=== PATIENT | female | born 1960 | race Caucasian/White ===

== ENCOUNTER 2021-10-05 04:27 | Observation (INO) | payer OTHER, SELFPAY ==
[2021-10-05] MEDS ORDERED: MORPHINE 4 MG/ML SYR ONE (04:53)
[2021-10-05] MEDS ORDERED: ONDANSETRON 4 MG/2 ML VIAL ONE (04:53)
[2021-10-05 05:53] LABS: Protime INR 0.97
[2021-10-05 05:55] LABS: Absolute Lymphocytes (CBC) 1.7 K/uL (0.7-4.9); Hematocrit 39.9 % (36.0-45.0); Lymphocytes % 29.5 % (15.3-44.8); MPV 7.8 fL (7.6-11.3); RBC Red Blood Cell Count 4.03 M/uL (3.86-4.86)
[2021-10-05 06:06] LABS: ALT/SGPT 21 U/L (12-78); AST/SGOT 9 U/L (15-37); Alkaline Phosphatase 117 U/L (45-117); BUN Blood Urea Nitrogen 13 mg/dL (7-18); Bicarbonate 28 mmol/L (21-32); Bilirubin Direct < 0.1 mg/dL (0-0.2); Bilirubin Total 0.3 mg/dL (0.2-1.0); Glucose Level 96 mg/dL (74-106); Potassium 3.5 mmol/L (3.5-5.1); Protein, Total 6.5 g/dL (6.4-8.2); Sodium Level 142 mmol/L (136-145)
[2021-10-05 06:07] LABS: Albumin 3.2 g/dL (3.4-5.0); Magnesium 2.1 mg/dL (1.8-2.4); NT PRO-BNP 196 pg/mL (<125)
[2021-10-05] MEDS ORDERED: NITROGLYCERIN 0.4 MG/TAB SL ONE (06:12)
--- NOTE | 2021-10-05 06:21 | EDPHYS ---
Physician Documentation [facility] Name: Kae López Age: 61 yrs Sex: Female : 1960 Arrival Date: 10/05/2021 Time: 04:37 Bed 28 Private MD: ED Physician Raz Saldana HPI: 10/05 04:50 This 61 yrs old Female presents to ER via Unassigned with complaints of Chest Pain. rn 04:50 The patient or guardian reports chest pain that is located primarily in the anterior rn chest wall, left. Onset: 1.5 hour(s) ago. The pain does not radiate. Associated signs and symptoms: Pertinent positives: None. Pertinent negatives: abdominal pain, cough, dizziness, headache, lower extremity swelling, palpitations, shortness of breath, syncope, vomiting. The chest pain is described as a pressure. Duration: The patient or guardian reports a single episode, that is still ongoing. Modifying factors: The symptoms are alleviated by nothing. the symptoms are aggravated by nothing. Severity of pain: At its worst the pain was moderate in the emergency department the pain is unchanged. The patient has not experienced similar symptoms in the past. The patient has not recently seen a physician. 04:50 Patient states chest pain that began 1.5 hours ago, substernal and left-sided, rn nonradiating, no diaphoresis, reports mild shortness of breath, no cough, no hemoptysis, no history of DVT or PE, no trauma. Woke her up from sleep.. Historical: - Allergies: 04:56 No Known Allergies; al4 - Immunization history:: Adult Immunizations up to date, Client reports having NOT received the Covid vaccine. Flu vaccine is not up to date. - Social history:: Smoking status: Patient denies any tobacco usage or history of. Patient uses alcohol, on a daily basis. - Family history:: not pertinent. - Hospitalizations: : No recent hospitalization is reported. ROS: 04:50 Constitutional: Negative for fever, chills, and weight loss, Eyes: Negative for injury, rn pain, redness, and discharge, ENT: Negative for injury, pain, and discharge, Neck: Negative for injury, pain, and swelling, Cardiovascular: Positive for chest pain Respiratory: Positive for shortness of breath Abdomen/GI: Negative for abdominal pain, nausea, vomiting, diarrhea, and constipation, Back: Negative for injury and pain, MS/Extremity: Negative for injury and deformity, Skin: Negative for injury, rash, and discoloration, Neuro: Negative for headache, weakness, numbness, tingling, and seizure. Exam: 04:50 Constitutional: This is a well developed, well nourished patient who is awake, alert, rn appears anxious Head/Face: Normocephalic, atraumatic. Eyes: Periorbital areas with no swelling, redness, or edema. Cardiovascular: Regular rate and rhythm. No pulse deficits. Respiratory: Speaking full sentences, unlabored. Abdomen/GI: Soft, non-tender, no masses Skin: Warm, dry MS/ Extremity: Pulses equal, no cyanosis. Neurovascular intact. Full, normal range of motion. Equal circumference. Neuro: Awake and alert, GCS 15 Vital Signs: 04:40 BP 177 / 93; Pulse 56; Resp 20; Pulse Ox 100% on R/A; Pain 5/10; tk1 04:53 BP 167 / 100; Pulse 67; Resp 18 S; Temp 98.2; Pulse Ox 100% ; Weight 108.86 kg (R); al4 Height 6 ft. 2 in. (187.96 cm) (R); Pain 5/10; 05:06 BP 120 / 88 LA Supine (auto/reg); Pulse 57 MON; Resp 16; Temp 98(O); Pulse Ox 100% on tk1 R/A; Pain 0/10; 05:30 BP 161 / 98 LA Supine (auto/reg); Pulse 53 MON; Resp 14 S; Pulse Ox 100% on R/A; tk1 05:30 BP 180 / 100 LA Supine (auto/reg); Pulse 56 MON; Resp 14 S; Pulse Ox 100% on R/A; tk1 14:23 BP 177 / 71; Pulse 57; Resp 18; Pulse Ox 100% on R/A; lao 04:53 Body Mass Index 30.81 (108.86 kg, 187.96 cm) al4 Dilliner Coma Score: 04:40 Eye Response: spontaneous(4). Verbal Response: oriented(5). Motor Response: obeys tk1 commands(6). Total: 15. MDM: 04:38 Patient medically screened. rn 06:13 Differential diagnosis: acute myocardial infarction, acute pericarditis, anxiety, rn coronary artery disease chest wall pain, esophagitis, gastritis, pleurisy, pneumothorax, pulmonary embolus, stable angina, unstable angina. Data reviewed: vital signs, nurses notes. 06:13 The patient was not given aspirin in the Emergency Department. Patient reports taking rn aspirin within the past 24 hours. 06:14 HEART Score: History: Moderately Suspicious (1), ECG: Non specific repolarization rn disturbance / LBTB / PM (1), Age: > 45 and < 65 years (1), Risk Factors: 1 or 2 risk factors (1), Troponin: < or = 1 x Normal Limit (0), Total Score = 4. Counseling: I had a detailed discussion with the patient and/or guardian regarding: the historical points, exam findings, and any diagnostic results supporting the discharge/admit diagnosis, lab results, radiology results, the need for further work-up and treatment in the hospital. Response to treatment: the patient's symptoms have mildly improved after treatment, and as a result, I will admit patient. Admission orders: after a detailed discussion of the patient's condition and case, the admit orders are written by me. ED course: Pt has improved but still having chest pressure. Neg d-dimer. Will admit for cardiac w/u and cardiology consult. . 10/05 04:48 Order name: Basic Metabolic Panel; Complete Time: 06: tk10/05 04:48 Order name: CBC with Diff; Complete Time: : tk10/05 04:48 Order name: LFT's; Complete Time: 06:12 10/05 04:48 Order name: Magnesium; Complete Time: 06:10/05 04:48 Order name: NT PRO-BNP; Complete Time: 06:10/05 04:48 Order name: PT-INR; Complete Time: : tk10/05 04:48 Order name: Troponin HS; Complete Time: 06: tk10/05 04:50 Order name: COVID-19 SARS RT PCR (Document "Date of Onset" if Symptomatic); Complete rn Time: 10/05 05:09 Order name: D-Dimer; Complete Time: 05: EDKY 10/05 08:48 Order name: Basic Metabolic Panel EDKY 10/05 08:48 Order name: Basic Metabolic Panel EDKY 10/05 08:48 Order name: CBC with Automated Diff EDMS 10/05 08:48 Order name: CBC with Automated Diff EDMS 10/05 04:48 Order name: XRAY Chest (1 view) tk1 10/05 04:48 Order name: EKG; Complete Time: 04:49 tk1 10/05 04:48 Order name: Cardiac monitoring; Complete Time: 04:48 tk1 10/05 04:48 Order name: EKG - Nurse/Tech; Complete Time: 04:48 tk1 10/05 04:48 Order name: IV Saline Lock; Complete Time: 04:48 tk1 10/05 04:48 Order name: Labs collected and sent; Complete Time: 04:49 tk1 10/05 08:48 Order name: Heart Healthy EDKY 10/05 08:48 Order name: Echo with Doppler EDMS 10/05 08:48 Order name: Lipid Profile EDMS 10/05 08:48 Order name: Lipid Profile EDKY 10/05 08:50 Order name: CONS Physician Consult EDKY 10/05 14:33 Order name: NM EDKY 10/05 04:48 Order name: O2 Per Protocol; Complete Time: 08:14 tk1 10/05 04:48 Order name: O2 Sat Monitoring; Complete Time: 08:14 tk1 Administered Medications: 04:50 Drug: morphine 4 mg Route: IVP; Site: right hand; tk1 04:50 Drug: Zofran (Ondansetron) 4 mg Route: IVP; Site: right hand; tk1 06:05 Drug: Nitroglycerin 0.4 mg Route: Sublingual; tk1 Disposition Summary: 10/05/21 06:20 Hospitalization Ordered Hospitalization Status: Inpatient Admission rn Provider: Logan Chowdhury rn Condition: Stable rn Problem: new rn Symptoms: have improved rn Bed/Room Type: Standard rn Location: [facility] ER HOLD(10/05/21 06:23) eb1 Room Assignment: ERHOLD-(10/05/21 06:23) eb1 Diagnosis - Chest pain, unspecified rn Forms: - Medication Reconciliation Form rn - SBAR form rn Signatures: Dispatcher [employer] EDMS Raz Saldana MD MD rn Basinger, Emily RN RN eb1 Dickson Hutton Tammie tk1 Corrections: (The following items were deleted from the chart) 05:08 04:49 D-DIMER+COAG.LAB.BRZ ordered. EDMS EDMS : 06:20 Telemetry/MedSurg (observation) ashtyn eb1 : 06:20 ashtyn eb1 06:27 06:16 Angio Aorta For Dissection+CT.RAD.BRZ ordered. EDMS EDMS
--- NOTE | 2021-10-05 06:21 | ER ---
Nurse's Notes [facility] Name: Kae López Age: 61 yrs Sex: Female : 1960 Arrival Date: 10/05/2021 Time: 04:37 Bed 28 Private MD: Diagnosis: Chest pain, unspecified Presentation: 10/05 04:53 Chief complaint: Patient states: "I woke up at 0300 with chest pain 910." Patient al4 states she has "slight" SOB, but denies N/V/D and denies having symptoms like this before. Coronavirus screen: Vaccine status: Patient reports being unvaccinated. Ebola Screen: No symptoms or risks identified at this time. Initial Sepsis Screen: Does the patient meet any 2 criteria? No. Patient's initial sepsis screen is negative. Does the patient have a suspected source of infection? No. Patient's initial sepsis screen is negative. Risk Assessment: Do you want to hurt yourself or someone else? Patient reports no desire to harm self or others. Onset of symptoms was October 05, 2021. 04:53 Method Of Arrival: Ambulatory al4 04:53 Acuity: TEENA 3 al4 Triage Assessment: 04:40 General: ERP at bedside assessing patient . al4 04:56 General: Appears in no apparent distress. uncomfortable, Behavior is calm, cooperative, al4 appropriate for age. Pain: Complains of pain in chest. Neuro: Level of Consciousness is awake, alert, obeys commands, Oriented to person, place, time, situation. Cardiovascular: Capillary refill < 3 seconds Patient's skin is warm and dry. Chest pain. Respiratory: Airway is patent Respiratory effort is even, unlabored, Respiratory pattern is regular, symmetrical. Musculoskeletal: Range of motion: intact in all extremities. Historical: - Allergies: 04:56 No Known Allergies; al4 - Immunization history:: Adult Immunizations up to date, Client reports having NOT received the Covid vaccine. Flu vaccine is not up to date. - Social history:: Smoking status: Patient denies any tobacco usage or history of. Patient uses alcohol, on a daily basis. - Family history:: not pertinent. - Hospitalizations: : No recent hospitalization is reported. Screenin:40 Abuse screen: Denies threats or abuse. Denies injuries from another. Nutritional tk1 screening: No deficits noted. Tuberculosis screening: No symptoms or risk factors identified. Fall Risk None identified. Assessment: 04:00 Respiratory: No deficits noted. Airway is patent Breath sounds are clear bilaterally. tk1 04:40 General: Appears uncomfortable, obese, well groomed, well developed, well nourished, tk1 Behavior is calm, cooperative, appropriate for age. Pain: Complains of pain in anterior aspect of left upper chest Pain does not radiate. Pain currently is 5 out of 10 on a pain scale. Quality of pain is described as sharp, Pain began 1 hour ago. Is continuous, Alleviated by nothing. Neuro: No deficits noted. Level of Consciousness is awake, alert, obeys commands, Oriented to person, place, time, situation, Appropriate for age Line Walker are equal bilaterally Moves all extremities. Full function Gait is steady, Speech is normal, Facial symmetry appears normal, Pupils are PERRLA, Intact Reports Denies weakness. Cardiovascular: Reports chest pain, Denies Heart tones S1 S2 present Capillary refill < 3 seconds is brisk Clubbing of nail beds is absent JVD is absent Pulses are all present. Edema is absent. Rhythm is sinus bradycardia Chest pain began 1 hour prior to arrival episodes are continuous. GI: No deficits noted. : No deficits noted. EENT: No deficits noted. Derm: No deficits noted. Musculoskeletal: No deficits noted. 05:00 Reassessment: Patient appears in no apparent distress at this time. Patient verbalized tk1 relief of chest pain. States, she feels pressure between breast. 06:00 Reassessment: Patient continues with chest pressure. New order received. tk1 06:00 Reassessment: Patient verbalized relief of chest pressure after sublingual NTG. tk1 Medication effective. Vital Signs: 04:40 BP 177 / 93; Pulse 56; Resp 20; Pulse Ox 100% on R/A; Pain 5/10; tk1 04:53 BP 167 / 100; Pulse 67; Resp 18 S; Temp 98.2; Pulse Ox 100% ; Weight 108.86 kg (R); al4 Height 6 ft. 2 in. (187.96 cm) (R); Pain 5/10; 05:06 BP 120 / 88 LA Supine (auto/reg); Pulse 57 MON; Resp 16; Temp 98(O); Pulse Ox 100% on tk1 R/A; Pain 0/10; 05:30 BP 161 / 98 LA Supine (auto/reg); Pulse 53 MON; Resp 14 S; Pulse Ox 100% on R/A; tk1 05:30 BP 180 / 100 LA Supine (auto/reg); Pulse 56 MON; Resp 14 S; Pulse Ox 100% on R/A; tk1 14:23 BP 177 / 71; Pulse 57; Resp 18; Pulse Ox 100% on R/A; lao 04:53 Body Mass Index 30.81 (108.86 kg, 187.96 cm) al4 Vitals: 04:40 Cardiac Rhythm Assessment Regular Sinus pako. Cardiac Rhythm Assessment Regular Sinus tk1 pako. 05:06 Cardiac Rhythm Assessment Regular Sinus pako. tk1 Hieu Coma Score: 04:40 Eye Response: spontaneous(4). Verbal Response: oriented(5). Motor Response: obeys tk1 commands(6). Total: 15. ED Course: 04:37 Patient arrived in ED. es 04:38 Raz Saldana MD is Attending Physician. rn 04:40 Patient has correct armband on for positive identification. Bed in low position. Call tk1 light in reach. Side rails up X2. Adult w/ patient. environmental monitoring specialist on. Pulse ox on. NIBP on. 04:40 No provider procedures requiring assistance completed. Inserted saline lock: 20 gauge tk1 in right hand, using aseptic technique. 04:48 Mariely Rivero is Primary Nurse. tk1 04:56 Triage completed. al4 04:58 Arm band placed on. al4 05:04 COVID-19 SARS RT PCR (Document "Date of Onset" if Symptomatic) Sent. tk1 05:05 Basic Metabolic Panel Sent. tk1 05:05 CBC with Diff Sent. tk1 05:05 LFT's Sent. tk1 05:05 Magnesium Sent. tk1 05:05 NT PRO-BNP Sent. tk1 05:05 PT-INR Sent. tk1 05:05 Troponin HS Sent. tk1 05:06 XRAY Chest (1 view) In Process Unspecified. EDMS 06:19 Logan Chowdhury MD is Hospitalizing Provider. rn 14:23 Patient maintains SpO2 saturation greater than 95% on room air. lao 19:12 Patient admitted, IV remains in place. ss Administered Medications: 04:50 Drug: morphine 4 mg Route: IVP; Site: right hand; tk1 04:50 Drug: Zofran (Ondansetron) 4 mg Route: IVP; Site: right hand; tk1 06:05 Drug: Nitroglycerin 0.4 mg Route: Sublingual; tk1 Outcome: 06:20 Decision to Hospitalize by Provider. rn 19:12 Admitted to ER Hold. Please see [facility] for further documentation. ss 19:12 Condition: stable 19:12 Instructed on the need for admit. 21:05 Patient left the ED. tw5 Signatures: Dispatcher [employer] EDMS Eloisa Fischer Roman, MD MD rn Smirch, Shelby, RN RN ss Wood, Tiffany tw5 Dickson Hutton-StagerCarrie RN RN ha Kirby, Tammie tk1 Corrections: (The following items were deleted from the chart) 05:08 05:04 D-DIMER+COAG.LAB.BRZ drawn and sent. tk1 EDMS :17 05:06 General: Appears uncomfortable, obese, well groomed, well developed, well tk1 nourished, Behavior is calm, cooperative, appropriate for age, tk1 :17 05:06 Pain: Complains of pain in anterior aspect of left upper chest Pain does not tk1 radiate. Pain currently is 5 out of 10 on a pain scale. Quality of pain is described as sharp, Pain began 1 hour ago. Is continuous, Alleviated by nothing. tk1 05:06 Neuro: No deficits noted. Level of Consciousness is awake, alert, obeys commands, tk1 Oriented to person, place, time, situation, Appropriate for age Line Walker are equal bilaterally Moves all extremities. Full function Gait is steady, Speech is normal, Facial symmetry appears normal, Pupils are PERRLA, Intact Reports Denies weakness tk1 :17 05:06 Cardiovascular: Reports chest pain, Denies Heart tones S1 S2 present Capillary tk1 refill < 3 seconds is brisk Clubbing of nail beds is absent JVD is absent Pulses are all present. Edema is absent. Rhythm is sinus bradycardia Chest pain began 1 hour prior to arrival episodes are continuous tk1 05:06 Respiratory: No deficits noted. Airway is patent Breath sounds are clear tk1 bilaterally. tk1 05:06 GI: No deficits noted. tk1 tk1 05:17 05:06 : No deficits noted. tk1 tk1 05:17 05:06 EENT: No deficits noted. tk1 tk1 05:17 05:06 Derm: No deficits noted. tk1 tk1 05:17 05:06 Musculoskeletal: No deficits noted. tk1 tk1
--- NOTE | 2021-10-05 08:10 | RAD REPORT ---
EXAM DESCRIPTION: RAD - Chest Single View - 10/05/2021 5:06 am CLINICAL HISTORY: CHEST PAIN COMPARISON: None TECHNIQUE: AP portable chest image was obtained 10/05/2021 5:06 am . FINDINGS: Under penetrated technique and prominent overlying breast soft tissue limits mid and lower lung field evaluation. Focal mass or consolidation is not identifiable. No significant lung parenchy mal process suspected. Heart and vasculature are normal. No measurable pleural effusion and no pneumothorax. No acute bony abnormality seen. No acute aortic findings suspected. IMPRESSION: No acute cardiopulmonary process.
[2021-10-05] MEDS ORDERED: ACETAMINOPHEN 500 MG TAB PO PRN (08:45)
[2021-10-05] MEDS ORDERED: MORPHINE 4 MG/ML SYR IV PRN (08:45)
[2021-10-05] MEDS ORDERED: ASPIRIN EC 81 MG TAB PO SCH (09:00)
[2021-10-05] MEDS ORDERED: METOPROLOL TAR 25 MG TAB PO SCH (09:00)
[2021-10-05] MEDS ORDERED: ENOXAPARIN 40 MG/0.4 ML SQ SCH (09:00)
[2021-10-05] MEDS ORDERED: REGADENOSON 0.4 MG/5 ML SYR IV ONE (09:27)
[2021-10-05] MEDS ORDERED: HYDROCORTISONE SUC 100 MG INJ IV ONE (09:34)
[2021-10-05] MEDS ORDERED: ENOXAPARIN 40 MG/0.4 ML SQ ONE (12:04)
[2021-10-05] MEDS ORDERED: ASPIRIN 81 MG CHEWABLE TABLET ONE (12:04)
[2021-10-05] MEDS ORDERED: HYDROCORTISONE SUC 100 MG INJ ONE (12:04)
--- NOTE | 2021-10-05 14:19 | ECHO ---
HEIGHT: ft in WEIGHT: lb oz DATE OF STUDY: 10/05/[address]: Logan Chowdhury MD 2-DIMENSIONAL: YES M.MODE: YES DOPPLER: YES COLOR FLOW: YES TDS: PORTABLE: DEFINITY: BUBBLE STUDY: DIAGNOSIS: CHEST PAIN CARDIAC HISTORY: CATHERIZATION: SURGERY: PROSTHETIC VALVE: PACEMAKER: MEASUREMENTS (cm) DIASTOLIC (NORMALS) SYSTOLIC (NORMALS) IVSd 1.3 (0.6-1.2) LA Diam 3.5 (1.9-4.0) LVEF 60% LVIDd 4.5 (3.5-5.7) LVIDs 3.0 (2.0-3.5) %FS 32% LVPWd 1.4 (0.6-1.2) Ao Diam 2.8 (2.0-3.7) 2 DIMENSIONAL ASSESSMENT: RIGHT ATRIUM: NORMAL LEFT ATRIUM: NORMAL RIGHT VENTRICLE: NORMAL LEFT VENTRICLE: NORMAL TRICUSPID VALVE: MILD TRICUSPID REGURGITATION MITRAL VALVE: MILD MITRAL REGURGITATION PULMONIC VALVE: NORMAL AORTIC VALVE: NORMAL PERICARDIAL EFFUSION: NONE AORTIC ROOT: NORMAL LEFT VENTRICULAR WALL MOTION: NORMAL DOPPLER/COLOR FLOW: SEE BELOW COMMENTS: NORMAL LEFT VENTRICULAR EJECTION FRACTION 55-60%. NORMAL WALL MOTION. MILD TRICUSPID REGURGITATION. MILD MITRAL REGURGITATION. TECHNOLOGIST: NITIN CONTRERAS
--- NOTE | 2021-10-05 14:32 | RAD REPORT ---
EXAM DESCRIPTION: NM - Rest Stress Cardiac Imaging - 10/05/2021 2:18 pm CLINICAL HISTORY: Chest pain. COMPARISON: None. TECHNIQUE: The patient was administered 10. 8mCi of Tc 99m Sestamibi prior to resting SPECT imaging of the heart. The patient was then administered 30.9 mCi of Tc 99m Sestamibi following exercise or ph armacologic stress. Multiplanar SPECT images were reviewed. FINDINGS: There is uniformity of radiotracer uptake involving the entire left ventricular myocardiu m on rest and stress images. The left ventricular ejection fraction equals 67% IMPRESSION: Negative for a myocardial perfusion defect
--- NOTE | 2021-10-05 14:55 | TREADPHA ---
DX: CHEST PAIN Date of Study: 10/02/2021 Ht: ' " Wt: lb oz Consulting Physician: SRUTHI MEDICATIONS: ASPIRIN, LOVENOX, LOPRESSOR HISTORY: 61 YEAR OLD FEMALE WITH COMPLAINTS OF CHEST PAIN AND SHORTNESS OF BREATH. HISTORY OF CONGESTIVE HEART FAILURE AND FORMER SMOKER. PHYSICIAL EXAMINATION: RESTING B.P.: 171/90 RESTING H.R.: 58 RESTING EKG: WITHIN NORMAL LIMITS PROTOCOL: LEXISCAN EXERCISE TIME: 3:30 B.P. AT PEAK STRESS: 182/91 IMPRESSION: LEXISCAN INJECTED. CARDIOLITE INJECTED PER PROTOCOL. SEE NUCLEAR MEDICINE REPORT. NO PREMATURE VENTRICULAR COMPLEXES. NO SUPRAVENTRICULAR OR VENTRICULAR TACHYCARDIA NOTED. PATIENT COMPLAINS OF CHEST PAIN OF 5/10 AND DECREASED TO 1/10 AT 2 MIN. NO EKG CHANGES WITH LEXISCAN.
--- NOTE | 2021-10-05 18:35 | CON ---
Date of Consultation: 10/05/2021 Reason For Consultation: Chest pain. History Of Present Illness: This is a 61-year-old female, who has a strong family history of coronar y artery disease. Sister at her age had significant LAD disease, required intervention. Presented w ith chest pain, it is retrosternal, radiates to the right side and related to activities along with s ome shortness of breath. Denies having any other complaints at the present time. Past Medical History: Hypertension. No cardiac history. Medications: Refer reconciliation sheet for detailed list. Allergies: NO KNOWN DRUG ALLERGIES. Family History: Premature coronary artery disease as outlined above in her sister. Social History: Does not smoke or drink. Does not use any drugs. Review of Systems: All systems reviewed and they were negative except as mentioned in the HPI. Physical Examination: Vital Signs: Reviewed. Head and Neck: Pupils are equal and reactive to light. Intact eye movements. No JVD. No adenopath y. Neck is supple. Thyroid is not enlarged. Lungs: Clear to auscultation bilaterally. No rhonchi, rales, or crackles. No accessory muscle use. Heart: Regular rate and rhythm. No extra sounds. Abdomen: Soft and nontender. Bowel sounds positive. No organomegaly. No masses or hernia. No rig idity or rebound. Extremities: No edema, clubbing, or cyanosis. Intact pulses. Skin: No rash. Neurologic: Alert, awake, and oriented x3. No acute focal deficits appreciated. Investigations: White blood cell count 5.7, hemoglobin 13.2, sodium 142, BUN 13, and creatinine 0.58 . Troponin is 7.7 and NT-proBNP is 196. EKG without acute specific abnormalities. Assessment And Recommendations: Chest pain with strong family history. Heart function is normal on echo and she has some typical features to it. Admit, start on aspirin and do 2 more sets of cardiac enzymes. Nuclear stress test was just done, awaiting the results on that. If this is abnormal, we w ill plan for coronary angiogram. If stress test is negative, then no further cardiac workup will be recommended. I will follow the patient with you. Thank you for the consult. /CAITLYN Voice ID: [id number] Report ID: [id number]
[2021-10-05 21:18] VITALS: O2SAT 100
[2021-10-05 21:19] VITALS: TEMP 98
[2021-10-05 21:23] VITALS: BP 177/71
--- NOTE | 2021-10-09 03:37 | P.SSS ---
Patient History Date of Service: 10/05/21 Reason for admission: Chest pain rule out acute coronary syndrome History of Present Illness: Patient is a 61-year-old female came to the hospital with chest discomfort. Patient has a family history of Coronary artery disease. Patient came to the hospital because her chest was tight. She was short of breath. She was brought into the emergency room for further evaluation. Initial troponins were negative. Patient be admitted for further treatment. Allergies No Known Allergies Allergy (Unverified 10/05/21 08:54) Home Medications: Aspirin [Aspirin EC 81 MG] 81 mg PO DAILY #30 tablet.dr 10/05/21 Metoprolol Tartrate [Lopressor*] 25 mg PO BID #60 tab 10/05/21 Pantoprazole [Protonix Tab] 40 mg PO DAILY #30 tab 10/05/21 predniSONE [Prednisone*] 20 mg PO DAILY #5 tab 10/05/21 - Past Medical/Surgical History -: Hypertension Past Surgical History: Patient denies surgical history - Family History Family History: Reviewed- Non-Contributory - Social History Smoking Status: Never smoker Alcohol use: No CD- Drugs: No Review of Systems 10-point ROS is otherwise unremarkable Physical Examination - Vital Signs Temperature: 98 F Blood Pressure: 177/71 Pulse: 57 Respirations: 18 Pulse Ox (%): 99 - Physical Exam General: Alert, In no apparent distress, Oriented x3 HEENT: Atraumatic, PERRLA, Mucous membr. moist/pink, EOMI, Sclerae nonicteric Neck: Supple, 2+ carotid pulse no bruit, No LAD, Without JVD or thyroid abnormality Respiratory: Clear to auscultation bilaterally, Normal air movement Cardiovascular: Regular rate/rhythm, Normal S1 S2, No murmurs Gastrointestinal: Normal bowel sounds, Soft and benign, Non-distended, No tenderness Musculoskeletal: No clubbing, No swelling, No contractures, No tenderness Integumentary: No rashes Neurological: Normal gait, Normal speech, Normal strength at 5/5 x4 extr, Normal tone, Sensation intact, Cranial nerves 3-12 intact, Normal affect Lymphatics: No axilla or inguinal lymphadenopathy - Diagnosis (Problem(s)) (1) Chest pain, rule out acute myocardial infarction Status: Acute Treatment Summary: Patient is clinically doing well. Patient stress test was negative. Echo was unremarkable. At this time patient is stable for discharge and will be discharged on medication for costochondritis including anti-inflammatory. Patient will follow with PCP in 1-2 weeks. - Disposition Discharge Date: 10/05/21 Disposition: ROUTINE DISCHARGE Condition: GOOD Diet: AHA Activity: Fall precautions Critical Care: No Time Spent Managing Pts Care (In Minutes): 45
== END 2021-10-05 19:56 | disposition home or self-care (01) ==
LOC: ER 04:27 → ERHOLD 08:45
PROVIDERS: ADMIT Hospitalist; ATTEND Hospitalist
DX: R07.9 Chest pain, unspecified (principal); I10 Essential (primary) hypertension; Z79.82 Long term (current) use of aspirin; Z20.822 Contact with and (suspected) exposure to COVID-19; Z82.49 Family history of ischemic heart disease and other diseases of the circulatory system
CPT/HCPCS: 93005; 93017; 93306; 85025; 80048; 36415; 83735; 85610; 85379; 80076; 84484; 83880; 71045; 78452; 96375; 96374; 99285; U0003; J1650; J2785; J1720; J2405; A9500; G0378 ×2

== ENCOUNTER 2022-10-09 05:59 | Day surgery (SDC) | payer OTHER ==
--- NOTE | 2022-10-04 11:17 | RAD REPORT ---
EXAM DESCRIPTION: RAD - Chest Pa And Lat (2 Views) - 10/04/2022 11:11 am CLINICAL HISTORY: Pre op pending foot surgery Chest pain. COMPARISON: Chest Single View dated 10/05/2021 FINDINGS: The lungs are clear. The heart is normal in size. No displaced fractures. IMPRESSION: No acute or concerning finding suspected.
[2022-10-04 11:21] LABS: Absolute Lymphocytes (CBC) 1.6 K/uL (0.7-4.9); Hematocrit 41.2 % (36.0-45.0); Lymphocytes % 23.8 % (15.3-44.8); MCV 96.5 fL (80-100); MPV 7.8 fL (7.6-11.3); RBC Red Blood Cell Count 4.27 M/uL (3.86-4.86)
[2022-10-04 11:22] LABS: Specific Gravity 1.017 (1.005-1.030); Urine Bilirubin NEGATIVE (Negative); Urine Blood Negative (Negative); Urine Clarity Clear (Clear); Urine Color Light-Yellow (Yellow); Urine Glucose NEGATIVE (Negative); Urine Protein NEGATIVE (Negative); Urine Urobilinogen Normal (Normal)
--- NOTE | 2022-10-04 18:10 | EKG ---
Test Date: 2022-10-04 Test Time: 10:55:02 Deputy Sheriff Generalist/Bailiff: HA MEASUREMENT RESULTS: Intervals: Rate: 58 PA: 160 QRSD: 88 QT: 404 QTc: 396 Stuart: P: 61 PA: 160 QRS: 57 T: 98 INTERPRETIVE STATEMENTS: Sinus bradycardia Nonspecific T wave abnormality Abnormal ECG Compared to ECG 10/05/2021 04:46:44 Myocardial infarct finding no longer present Possible ischemia no longer present T-wave abnormality still present Electronically Signed On 10-04-22 18:10:15 OXYACETYLENE TORCH OPERATOR by Dirk Chahal
--- NOTE | 2022-10-08 14:26 | PREOPHP ---
Date of Admission: 10/09/2022 History Of Present Illness: This patient presented to my office with a chief complaint of a bump on her left big toe and a growth present in the bottom of her left foot in the arch area. The growth lao s been present for over a year. The bump has been present on the toe for a number of weeks. The pat ient's pain is moderate in severity, worse with activity, improved with rest. Past Medical History: Include anemia, arthritis, hypertension, obesity. Current Medications: Include aspirin, trazodone 100 mg, tizanidine 4 mg, hydrocodone 10/325, spirono lactone 25 mg, pantoprazole 40 mg, indomethacin ER 75 mg, lovastatin 10 mg, and amlodipine 5 mg. Allergies: NKDA. Past Surgical History: Include procedure on the knee, hysterectomy, bunion surgery, neuroma surgery, tummy tuck, gastric sleeve, and breast enhancement. Social History: Patient is a former tobacco user and social beer drinker. Denies recreational drug use. Family History: Include anemia, cholesterol, gout, heart disease, hypertension, mitral valve prolaps e, stroke, thyroid in her father; arthritis, cancer, high cholesterol, heart disease, hypertension, s troke, and thyroid disease in her mother. Physical Examination: Vital Signs: 240 pounds, height 6 feet 1 inch. General Appearance: The patient is healthy, well de veloped, well nourished, well oriented x3. Cardiovascular: Reveals dorsalis pedis and posterior tibial pulses to be 4/4 bilaterally. Capillary refill time is less than 3 seconds to all toes. Temperature gradient is within normal limits. Ther e is no claudication, varicosities, or signs of DVT bilaterally. Musculoskeletal: Evaluation reveals semiflexible cavus foot type bilaterally. Subtalar joint shows increased varus bilaterally. There is forefoot supinatus and adductus bilaterally. Equinus is noted to be -5 degrees bilaterally per goniometer measurement. Subcutaneous soft tissue mass is located o n the left big toe. It is freely movable under the skin, measuring approximately 9 mm in diameter. No skin changes are seen. There is also a second growth in the plantar medial fascial band, not free ly movable under the skin, approximately 1.4 cm x 8 mm without skin changes. Skin: Evaluation reveals no rash, ulcer, tumor, or contracture bilaterally. Neurologic: Evaluation reveals deep tendon reflexes for the patellar and Achilles to be 5/5 bilatera lly. Vibratory and sharp dull sensation within normal limits. Imaging: X-ray evaluation of the left foot shows a marker placed in the plantar arch with no soft ti ssue or bone changes. There is a marker placed on the left big toe, which shows a residual wire from a prior Sherman osteotomy fixated with monofilament wire, which was previously attempted to be removed by the surgeon, but was not completely removed and is now protruding from the bone into the tissue. A diagnostic ultrasound of the plantar arch reveals a widened hypoechoic band of tissue within the pl nerissa fascia measuring approximately 0.84 cm in diameter with no indication of tear or rupture of the plantar fascia. It is completely within the plantar fascia. Diagnoses: 1.Plantar fibroma, soft tissue mass, left foot. Retained metal wire with pain in the left great toe . Recommended treatment is for excision of the soft tissue mass in the plantar arch of the left foot with biopsy. 2.Excision of remaining wire protruding out of the bone on the left hallux. The patient is informed that the wire in the bone will not be able to be removed. The patient is aware of the risks, benefi ts, and alternatives of the above-mentioned procedures including, but not limited to the risk of pain , swelling, numbness, stiffness, infection, nonhealing of skin, soft tissue, recurrence of the growth and/or pain. The patient has elected to pursue surgical management due to the unknown nature of the soft tissue mass in the left arch and the excruciating pain from the wire that is protruding in her left big toe. The patient has a prescription for hydrocodone, so will not be given an additional pre scription. Patient was fitted for postop shoe and seal tight to keep the surgical site dry. The pat ient was made aware of the risks of COVID during this time and should follow CDC guidelines to preven t the risk of infection and complication with healing and increased risk of blood clots due to COVID- 19 infection. The patient is scheduled for surgery on October 09, 2022. Medical H and P will be com pleted by Anesthesia. Preoperative labs have been performed. ZHENG/CAITLYN Voice ID: [id number]
[2022-10-09] MEDS ORDERED: Ringers Lactate 1,000 ML IV ONE (06:19)
[2022-10-09] MEDS ORDERED: CEFAZOLIN SODIUM 1 GM/VIAL ONE (06:20)
[2022-10-09 06:35] VITALS: O2SAT 99
[2022-10-09] MEDS ORDERED: NA CHLORIDE 0.9% 50 ML IV ONE (06:55)
[2022-10-09] MEDS ORDERED: BUPIVACAINE 0.5% PF 10 ML VIAL ONE (07:13)
[2022-10-09] MEDS ORDERED: KETOROLAC 30 MG/ML INJ ONE (07:15)
[2022-10-09] MEDS ORDERED: MIDAZOLAM HCL 2 MG/2 ML INJ ONE (07:15)
[2022-10-09] MEDS ORDERED: FENTANYL CITR 100 MCG/2 ML ONE (07:15)
[2022-10-09] MEDS ORDERED: propofoL 200 MG/20 ML VIAL IV ONE ×2 (07:15→07:46)
[2022-10-09] MEDS ORDERED: ONDANSETRON 4 MG/2 ML VIAL ONE (07:15)
[2022-10-09] MEDS ORDERED: LIDOCAINE 2% MPF 5 ML VIAL ONE (07:15)
[2022-10-09] MEDS ORDERED: dexAMETHasone 10 MG/ML VIAL ONE (07:15)
[2022-10-09] MEDS ORDERED: NS 0.9% VIAL 10 ML ONE (08:18)
[2022-10-09] MEDS ORDERED: GLYCOPYRROLATE 0.2 MG/ML SYR ONE (08:20)
[2022-10-09 09:44] VITALS: BP 127/68; TEMP 97.2
--- NOTE | 2022-10-09 10:08 | OP ---
Date of Procedure: 10/09/2022 Surgeon: Maninder Mason DPM Preoperative Diagnoses: 1.Soft tissue mass, plantar fascia, left foot. 2.Foreign body wire, proximal phalanx, left hallux dorsally. Postoperative Diagnoses: 1.Soft tissue mass, plantar fascia, left foot. 2.Foreign body wire, proximal phalanx, left hallux dorsally. Procedures: 1.Excision of soft tissue mass for biopsy, plantar fascia, left foot. 2.Excision of protruding wire, dorsal shaft, proximal phalanx, left hallux. Anesthesia: Anesthesia via local infiltration. Procedure In Detail: The patient was brought into the operating room, placed on the operating table in supine position. Once adequate IV sedation was obtained, the patient was injected with a total of 3 cc about the left hallux base and 4.5 cc plantarly for regional block around the soft tissue mass in the plantar left foot. The patient was prepped and draped in the usual sterile manner and the lef t extremity was elevated to 60 degrees and Esmarch bandage was applied to exsanguinate the blood supp ly. Pneumatic ankle tourniquet was elevated to 250 mmHg. The Esmarch was removed. Attention was th en directed to the plantar fascia of the left foot where a curvilinear incision was made approximatel y 2.5 cm in length over the soft tissue mass. The incision was deepened via sharp and blunt dissecti on down to the level of the plantar fascia. All neurologic structures were avoided. All bleeders we re clamped and bovied. Skin was freed laterally and medially maintaining a fatty layer. The soft ti ssue mass was visualized in the plantar fascia. Plantar fascia was incised at the medial border. He mostat was placed underneath to separate from the superior muscle belly and the plantar fascia was cu t where it was normal just proximal to the soft tissue mass. It was then freed medially, laterally, and distally maintaining 2 mm of healthy plantar fascia and the soft tissue mass was removed. The ar ea was inspected for any residual irregularities in the plantar fascia, none were found. The area wa s flushed with copious amounts of sterile saline. Subcutaneous closure was achieved utilizing 3-0 Vi cryl suture. Skin was closed utilizing 4-0 Prolene suturing. Procedure #2: The attention was then directed to the left hallux where a dorsal linear incision was made overlying the palpable bump on the dorsal aspect of the proximal phalanx of the left hallux, yoshi roximately 1.5 cm in length. It was freed medially and laterally. A granulomatous cystic area was e ncountered. This was removed and after incision of the deeper tissue, 2 wires could be seen protrudi ng from the bone. These were isolated, freed to stand vertically and removed utilizing a rongeur. T he area was inspected, rasp was applied, and any remaining wire was flush to the bone and had been dr bladimir. This was cerclage wire from a prior procedure and could not be removed, but there was no prot ruding wire present after removal of the 2 pieces mentioned. The area was flushed with copious amoun ts of sterile saline. Subcutaneous tissue was closed utilizing 2-0 Vicryl suture. Skin was closed u tilizing 4-0 Prolene suture. All areas were dressed with Adaptic, dry sterile gauze, dry sterile Kli ng, Kerlix, and Jam bandage. Pneumatic ankle tourniquet was deflated and capillary return was seen t o be instantaneous to all digits. The patient was sent to same-day surgery in satisfactory condition . ZHENG/CAITLYN Voice ID: [id number] Report ID: [id number]
--- NOTE | 2022-10-09 10:08 | DS ---
Date of Discharge: 10/09/2022 Date Of Surgery: 10/09/2022. Surgeon: Maninder Mason DPM Preoperative Diagnoses: 1.Soft tissue mass, plantar fascia, left foot. 2.Foreign body wire, proximal phalanx, left hallux. Postoperative Diagnoses: 1.Soft tissue mass, plantar fascia, left foot. 2.Foreign body wire, proximal phalanx, left hallux. Procedures: 1.Excision of soft tissue mass for biopsy plantar fascia, left foot. 2.Removal of protruding wire from bone from prior procedure, left hallux, proximal phalanx dorsally. Hospital Course: The patient tolerated the procedure and anesthesia well, was sent to recovery in sa tisfactory condition. Will be discharged per Anesthesia guidelines. May ambulate in a postop shoe p er instructions. The patient was given written instructions as well as emergency phone number. The patient has postop medications for pain and will be seen in my office in 1 week for followup care. ZHENG/CAITLYN Voice ID: [id number] Report ID: [id number]
== END 2022-10-09 09:20 | disposition home or self-care (01) ==
LOC: OR 05:59
PROVIDERS: ATTEND Podiatrist
PROC: 0JCR0ZZ Extirpation of Matter from Left Foot Subcutaneous Tissue and Fascia, Open Approach (ICD-10-PCS; 2022-10-09)
PROC: 0JBR0ZZ Excision of Left Foot Subcutaneous Tissue and Fascia, Open Approach (ICD-10-PCS; principal; 2022-10-09 07:30)
DX: D21.22 Benign neoplasm of connective and other soft tissue of left lower limb, including hip (principal); M79.5 Residual foreign body in soft tissue
CPT/HCPCS: 93005; 85025; 80048; 36415; 88300; 88304; 81003; 71046; 28039; 28190; J2704 ×2; J2001; J2250; J3010; J1100; A4216; J7120; J2405; J0690; 88305

== ENCOUNTER → 2023-08-30 | Emergency (ER) | payer OTHER ==
[~2023-08-30] MED LIST: HYDROMORPHONE HCL 0.5 MG/0.5 ML INJ ONE; HYDROMORPHONE HCL 1 MG/ML INJ ONE; KETOROLAC 30 MG/ML INJ ONE; MAGNESIUM SULFATE 1 gm IVPB 1 GM/100 ML BAG IV ONE; dexAMETHasone 10 MG/ML VIAL ONE
--- OUTSIDE RECORDS SUMMARY | 2023-08-30 16:13 | XMS REPORT | Continuity of Care Document ---
Author Name Unknown Address [address] [place] [address] thconnect Address [address] [place] [address] [address] [place] [address] Care Team Providers Care Patient Financial Services Coordinator Name Role Phone FOUND, PCP NOT Primary Care Physician Unavailab [facility] Attending Clinician Unavailable Problems Condition Name Condition Details Condition Category Status Onset Date Resolution Date Last Treatment Date Treating Clinician Comments Source Problem Problem [facility] Allergies, Adverse Reactions, Alerts Allergy Name Allergy Type Status Severity Reaction(s) Onset Date Inactive Date Treating Clinician Comments Source General inhalati on anesthet ic Allergy to substanc e Active Moderate 09-18 00:00: 00 [facility] Social History Social Habit Start Date Stop Date Quantity Comments Source Sex Assigned At 1960 00:00:00 1960 00:00:00 Female [facility] Smoking Status Start Date Stop Date Source Unknown if ever smoked [facility] Medications Ordered Medication Name Filled Medication Name Start Date Stop Date Current Medication? Ordering Clinician Indication Dosage Frequency Signature (SIG) Comments Components Source Acetaminoph en/Hydrocod one Bitart 04-12 07:02: 00 No 1 Every 4 - 6 Hours [facility] Cyclobenzap rine Hcl 04-12 07:02: 00 No 10mg Three Times A Day [facility] Acetaminoph en/Hydrocod one Bitart (Vicodin Es Tablet) 1 Tab TABLET 04-12 07:02: 00 No 1 Every 4 - 6 Hours [facility] Cyclobenzap rine Hcl (Flexeril) 10 Mg TAB 04-12 07:02: 00 No 10mg Three Times A Day [facility] Indomethaci n No 75mg Daily [facility] Lasix No 40mg Daily [facility] Potassium No 20 Twice A Day [facility] Tramadol Hcl No 50mg Q 6HRS Pain as needed [facility] Vit B12 Inj No 1 Q Week C [facility] Indomethaci n No 75mg Daily [facility] Lasix No 40mg Daily [facility] Potassium No 20 Twice A Day [facility] Tramadol Hcl (Ultram) 50 Mg TAB No 50mg Q 6HRS Pain as needed [facility] Vit B12 Inj No 1 Q Week C [facility] Cyclosporin e (Restasis 0.05% Oph Emul) 32 Ea DROPERETTE 09-10 00:00 :00 No 1[drp] Twice A Day [facility] Synthroid 09-10 00:00 :00 No 100 Daily [facility] Pain Pill 05-29 00:00 :00 No As Needed [facility] Propranolol 05-23 00:00 :00 No [facility] Procedures Procedure Date / Time Performed Performing Clinicia n Source Encounter Stat Only 2020-11-02 00:00:00 C [facility] Arthrocentesis aspir&/inj major jt/bursa w/o US 2020-11-02 00:00:00 [facility] X-ray of knee, AP and lateral views 2020-11-02 00:00:00 [facility] X-ray exam hip uni 2-3 views 2020-11-02 00:00:00 [facility] Minor level established patient office visit 2019-07-06 00:00:00 [facility] Encounters Start Date/Time End Date/Time Encounter Type Admission Type Attending Clinicians Care Facility Care Department Encounter ID Source 2022-10-01 12:39:00 2022-10-09 00:01:00 Outpatient [facility] [id number] [facility] 2020-11-02 15:55:00 2020-11-02 15:55:00 Discharged Recurring [facility] [id number] [facility] 2019-07-06 10:17:00 2019-07-09 23:59:00 Discharged Recurring NABILA VARGAS [facility] [id number] [facility]
--- NOTE | 2023-08-30 17:33 | EDPHYS ---
Physician Documentation [facility] Name: Kae López Age: 63 yrs Sex: Female : 1960 Arrival Date: 08/30/2023 Time: 16:10 Bed 12 Private MD: ED Physician Raz Saldana HPI: 08/30 16:23 This 63 yrs old Female presents to ER via Wheelchair with complaints of Back Pain. rn 16:23 The patient presents with pain that is acute, with no known mechanism of injury. The rn symptoms are located in the lumbar area and right mid back. Onset: The symptoms/episode began/occurred this morning. The pain does not radiate. Associated signs and symptoms: Pertinent negatives: abdominal pain, chest pain, constipation, dysuria, fever, headache, hematuria, incontinence, nausea, numbness, tingling, urinary retention, vomiting, weakness. Modifying factors: The patient symptoms are alleviated by nothing, the patient symptoms are aggravated by any movement. Severity of symptoms: At their worst the symptoms were moderate, in the emergency department the symptoms are unchanged. The patient has experienced similar episodes in the past. Patient reports mid to lower back pain, feels like a bad muscle spasm, has had this multiple times in the past and has also had back surgeries. Patient reports pain with movement that has gotten worse throughout the day. Took Flexeril and hydrocodone and did not relieve the pain so came in. This feels like previous back problems she has had before, no weakness of lower extremities or bowel or bladder issues. No fall or trauma. No abdominal pain. No chest pain. No new symptoms compared to her previous back presentations.. Historical: - Allergies: 16:19 No Known Allergies; ko1 - PMHx: 16:19 DJD; ko1 - PSHx: 16:19 back surgery; ko1 - Immunization history:: Adult Immunizations unknown. - Social history:: Smoking status: Patient denies any tobacco usage or history of. - Family history:: not pertinent. - Hospitalizations: : No recent hospitalization is reported. ROS: 16:23 Constitutional: Negative for fever, chills, and weight loss, Cardiovascular: Negative rn for chest pain, palpitations, and edema, Respiratory: Negative for shortness of breath, cough, wheezing, and pleuritic chest pain, Abdomen/GI: Negative for abdominal pain, nausea, vomiting, diarrhea, and constipation, Back: Positive for back pain and muscle spasm : Negative for injury, bleeding, discharge, and swelling, MS/Extremity: Negative for injury and deformity, Skin: Negative for injury, rash, and discoloration, Neuro: Negative for headache, weakness, numbness, tingling, and seizure, Exam: 16:23 Constitutional: This is a well developed, well nourished patient who is awake, alert, rn appears uncomfortable and in wheelchair Back: No spinal tenderness. No costovertebral tenderness. Slow but steady movements MS/ Extremity: Pulses equal, no cyanosis. Neuro: Awake and alert, GCS 15 Vital Signs: 16:15 BP 132 / 77; Pulse 62; Resp 16; Temp 98; Pulse Ox 96% ; ko1 18:01 BP 124 / 74; Pulse 64; Resp 16; Pulse Ox 98% ; cp4 MDM: 16:17 Patient medically screened. rn 17:17 ED course: Patient has Flexeril and hydrocodone at home, will add steroid. rn 17:31 Differential diagnosis: Osteoarthritis sprain, Muscle spasm of back. Data reviewed: rn vital signs, nurses notes, and as a result, I will discharge patient. Counseling: I had a detailed discussion with the patient and/or guardian regarding the historical points, exam findings, and any diagnostic results supporting the discharge/admit diagnosis, the need for outpatient follow up, to return to the emergency department if symptoms worsen or persist or if there are any questions or concerns that arise at home. Response to treatment: the patient's symptoms have mildly improved after treatment, and as a result, I will discharge patient. Special discussion: I discussed with the patient/guardian in detail that at this point there is no indication for admission to the hospital. It is understood, however, that if the symptoms persist or worsen the patient needs to return immediately for re-evaluation. Based on the history and exam findings, there is no indication for further emergent testing or inpatient evaluation. I discussed with the patient/guardian the need to see the back specialist for further evaluation of the symptoms. I discussed with the patient/guardian the need to see the primary care provider for further evaluation of the symptoms. ED course: Patient insistent that this is consistent with her back pains that she has had in the past. Patient feeling better, will add steroids to her Flexeril and pain medication that she is taking. Patient will follow-up with PCP and or specialist as discussed. Return precautions given and understood.. 17:33 ED course: Spoke to patient about adding gabapentin but she states has really bad rn dreams with it and did not tolerate it well.. 08/30 16:23 Order name: IV Start; Complete Time: 17:01 rn Administered Medications: 17:01 Drug: HYDROmorphone IVP 1 mg IVP once Route: IVP; Site: right antecubital; cp4 18:00 Follow up: Response: No adverse reaction cp4 17:01 Drug: Decadron - Dexamethasone IVP 10 mg IVP once Route: IVP; Site: right antecubital; cp4 18:00 Follow up: Response: No adverse reaction cp4 17:01 Drug: Magnesium Sulfate IVPB 1 grams IVPB once over 1 hrs Route: IVPB; Infused Over: 1 cp4 hrs; Site: right antecubital; 18:01 Follow up: Response: No adverse reaction; IV Status: Completed infusion cp4 17:01 Drug: Ketorolac IVP 15 mg IVP once Route: IVP; Site: right antecubital; cp4 18:01 Follow up: Response: No adverse reaction cp4 18:00 Drug: HYDROmorphone IVP 0.5 mg IVP once Route: IVP; Site: right antecubital; cp4 18:01 Follow up: Response: No adverse reaction cp4 Disposition Summary: 08/30/23 17:33 Discharge Ordered Notes: Location: Home rn Problem: an acute exacerbation rn Symptoms: have improved rn Condition: Stable rn Diagnosis - Muscle spasm of back rn Followup: rn - With: Private Physician - When: As needed - Reason: Recheck today's complaints, Re-evaluation by your physician Discharge Instructions: - Discharge Summary Sheet rn - Muscle Cramps and Spasms rn - Spasticity rn - Back Exercises rn Forms: - Medication Reconciliation Form rn - Thank You Letter rn - Antibiotic patternmaker apprentice metal - Prescription Opioid Use rn - Patient Portal Instructions rn - Leadership Thank You Letter rn Prescriptions: - Medrol (Alec) 4 mg Oral Tablets, Dose Pack - take 1 tablet ORAL route as directed - follow package instructions; 1 packet; rn Refills: 0, Product Selection Permitted Signatures: Raz Saldana MD MD rn Oliver, Kathy, RN RN ko1 Damaris Sanders cp4
--- NOTE | 2023-08-30 17:33 | ER ---
Nurse's Notes [facility] Name: Kae López Age: 63 yrs Sex: Female : 1960 Arrival Date: 08/30/2023 Time: 16:10 Bed 12 Private MD: Diagnosis: Muscle spasm of back Presentation: 08/30 16:15 Chief complaint: Patient states: back pain since this morning, lower thoracic and upper ko1 lumbar. Took flexaril and hydrocodone. Coronavirus screen: At this time, the client does not indicate any symptoms associated with coronavirus-19. Ebola Screen: No symptoms or risks identified at this time. Initial Sepsis Screen: Does the patient meet any 2 criteria? No. Patient's initial sepsis screen is negative. Does the patient have a suspected source of infection? No. Patient's initial sepsis screen is negative. Risk Assessment: Do you want to hurt yourself or someone else? Patient reports no desire to harm self or others. Onset of symptoms is unknown. 16:15 Method Of Arrival: Wheelchair ko1 16:15 Acuity: TEENA 3 ko1 Triage Assessment: 16:19 General: Appears in no apparent distress. uncomfortable, Behavior is calm, cooperative, ko1 appropriate for age. Pain: Complains of pain in lumbar area, left low back and right low back. Musculoskeletal: Circulation, motion, and sensation intact. Historical: - Allergies: 16:19 No Known Allergies; ko1 - PMHx: 16:19 DJD; ko1 - PSHx: 16:19 back surgery; ko1 - Immunization history:: Adult Immunizations unknown. - Social history:: Smoking status: Patient denies any tobacco usage or history of. - Family history:: not pertinent. - Hospitalizations: : No recent hospitalization is reported. Screenin:02 [facility] ED Fall Risk Assessment (Adult) History of falling in the last 3 months, cp4 including since admission No falls in past 3 months (0 pts) Confusion or Disorientation No (0 pts) Intoxicated or Sedated No (0 pts) Impaired Gait No (0 pts) Mobility Assist Device Used No (0 pt) Altered Elimination No (0 pt) Score/Fall Risk Level 0 - 2 = Low Risk Oriented to surroundings, Maintained a safe environment, Educated pt \T\ family on fall prevention, incl call for assistance when getting out of bed, Assessed \T\ reinforced patient's understanding of fall precautions, Hourly rounding (assess needs \T\ fall precautionary measures) done. Abuse screen: Denies threats or abuse. Nutritional screening: No deficits noted. Tuberculosis screening: No symptoms or risk factors identified. Assessment: 17:02 General: Appears distressed, Behavior is calm, cooperative, appropriate for age. Pain: cp4 Pain currently is 10 out of 10 on a pain scale. Neuro: No deficits noted. Vital Signs: 16:15 BP 132 / 77; Pulse 62; Resp 16; Temp 98; Pulse Ox 96% ; ko1 18:01 BP 124 / 74; Pulse 64; Resp 16; Pulse Ox 98% ; cp4 ED Course: 16:13 Patient arrived in ED. im 16:17 Raz Saldana MD is Attending Physician. rn 16:19 Triage completed. ko1 16:19 Arm band placed on right wrist. Patient placed in waiting room, Patient notified of ko1 wait time. 16:43 Damaris Sanders is Primary Nurse. cp4 17:02 Bed in low position. Call light in reach. Side rails up X 1. cp4 17:02 No provider procedures requiring assistance completed. Inserted saline lock: 20 gauge cp4 in right antecubital area, using aseptic technique. 18:02 Provided Education on: muscle spasms. cp4 18:02 intact, bleeding controlled, No redness/swelling at site. Pressure dressing applied. cp4 Administered Medications: 17:01 Drug: HYDROmorphone IVP 1 mg IVP once Route: IVP; Site: right antecubital; cp4 18:00 Follow up: Response: No adverse reaction cp4 17:01 Drug: Decadron - Dexamethasone IVP 10 mg IVP once Route: IVP; Site: right antecubital; cp4 18:00 Follow up: Response: No adverse reaction cp4 17:01 Drug: Magnesium Sulfate IVPB 1 grams IVPB once over 1 hrs Route: IVPB; Infused Over: 1 cp4 hrs; Site: right antecubital; 18:01 Follow up: Response: No adverse reaction; IV Status: Completed infusion cp4 17:01 Drug: Ketorolac IVP 15 mg IVP once Route: IVP; Site: right antecubital; cp4 18:01 Follow up: Response: No adverse reaction cp4 18:00 Drug: HYDROmorphone IVP 0.5 mg IVP once Route: IVP; Site: right antecubital; cp4 18:01 Follow up: Response: No adverse reaction cp4 Medication: 17:02 VIS not applicable for this client. cp4 Outcome: 17:33 Discharge ordered by . rn 18:02 Discharged to home via wheelchair, cp4 18:02 Condition: stable 18:02 Discharge instructions given to patient, Instructed on discharge instructions, follow up and referral plans. medication usage, Demonstrated understanding of instructions, follow-up care, medications, Prescriptions given X 1, 18:03 Patient left the ED. cp4 Signatures: Raz Saldana MD MD rn Oliver, Kathy, RN RN Arline Woody Christina cp4
[2023-08-30 19:10] VITALS: BP 124/74; TEMP 98; O2SAT 98
== END ==
LOC: ER 16:10
DX: M62.830 Muscle spasm of back (principal)
CPT/HCPCS: 96365; 96375; 99284; J3475; J1100; J1170 ×2

== ENCOUNTER 2024-10-21 13:13 | Day surgery (SDC) | payer OTHER ==
[2024-10-19 15:26] LABS: Absolute Basophils 0.1 K/uL (0-0.5); Absolute Eosinophils 0.2 K/uL (0-0.5); Absolute Lymphocytes (CBC) 1.9 K/uL (0.7-4.9); Absolute Monocytes 0.5 K/uL (0.1-1.3); Absolute Neutrophil 7.3 K/uL (1.8-8.0); Basophils % 0.8 % (0-1.3); Eosinophils % 2.3 % (0-4.4); Hematocrit 43.8 % (36.0-45.0); Hemoglobin 15.4 g/dL (12.0-15.0); Lymphocytes % 18.6 % (15.3-44.8); MCH 34.7 pg (27.0-35.0); MCHC 35.2 g/dL (32.0-36.0); MCV 98.4 fL (80-100); MPV 8.1 fL (7.6-11.3); Monocytes % 5.3 % (3.3-12.3); Platelets 236 thou/uL (152-406); RBC Red Blood Cell Count 4.45 M/uL (3.86-4.86); Red Cell Distribution Width 13.6 % (12.1-15.2)
[2024-10-19 15:34] LABS: PT Prothrombin Time 10.8 SECONDS (9.4-12.5); Protime INR 1.03
[2024-10-19 15:39] LABS: Anion Gap 6.9 mEq/L (5.0-15.0); Potassium 3.9 mEq/L (3.5-5.1)
--- NOTE | 2024-10-19 16:47 | RAD REPORT ---
EXAM: Chest Pa And Lat (2 Views) HISTORY: 64 years Female Pre-op pending heart cath COMPARISON: 10/04/2022 FINDINGS: LUNGS/PLEURA: The lungs are clear. No pleural effusions or pneumothorax. No pulmonary edema. MEDIASTINUM: The mediastinal silhouette is within normal limits CARDIAC: The cardiac silhouette is within normal limits. UPPER ABDOMEN: No significant abnormality. BONES: No acute abnormality. LINES/TUBES/OTHER: N/A IMPRESSION: No evidence of acute cardiopulmonary disease.
[2024-10-21] MEDS ORDERED: NA CHLORIDE 0.9% 500 ML ONE (13:16)
[2024-10-21] MEDS ORDERED: HEPA 1000U/500MLS 2,000 UNIT/1,000 ML BAG IV ONE (15:20)
[2024-10-21] MEDS ORDERED: HEPARIN 10,000 UNIT/10 ML VIAL IV ONE (15:20)
[2024-10-21] MEDS ORDERED: LIDOCAINE 1% 20 ML MDV ONE (15:20)
[2024-10-21] MEDS ORDERED: MIDAZOLAM HCL 2 MG/2 ML INJ ONE (15:21)
[2024-10-21] MEDS ORDERED: HEPARIN 5000 UNIT/ML 1 ML VIAL ONE (15:21)
[2024-10-21] MEDS ORDERED: ASPIRIN 325 MG TAB ONE (15:21)
[2024-10-21] MEDS ORDERED: CLOPIDOGREL 75 MG TABLET ONE (15:21)
[2024-10-21] MEDS ORDERED: ATROPINE SULF 1 MG/10 ML SYR IV ONE (15:21)
[2024-10-21] MEDS ORDERED: TICAGRELOR 90 MG TABLET PO ONE (15:21)
[2024-10-21] MEDS ORDERED: VERAPAMIL HCL 10 MG/4 ML VIAL IV ONE (15:22)
[2024-10-21] MEDS ORDERED: FENTANYL CITR 100 MCG/2 ML ONE (15:22)
[2024-10-21 17:14] VITALS: TEMP 97.3
[2024-10-21 18:40] VITALS: O2SAT 100
[2024-10-21 19:21] VITALS: BP 168/99
--- NOTE | 2024-10-21 22:50 | OP ---
Date of Procedure: 10/21/2024 Surgeon: AV NEGRO Procedures Performed: 1. Selective coronary angiogram. 2. Left heart catheterization. Indication: Chest pain with abnormal stress test. Access: Right radial artery, 6-[place], closed with TR band. Complications: None. Bleeding: Less than 50 mL. Total Sedation Time: 45 minutes, used fentanyl and Versed. Description Of Procedure: After risks, benefits, and alternatives were explained, the patient agreed to procedure and signed informed consent. The patient was brought into cardiac catheterization [facility], prepped and draped in usual sterile fashion. Then I accessed right radial artery using pedWyle micropuncture kit and ultrasound guidance. Placed 6-[place] slender sheath and then took 5-Frenc h [place] 4 catheter into the aortic root over J-wire across the aortic valve, measured the LVEDP. Pul lback did not record any gradient. Then engaged left main, took standard views and then the RCA, too k standard views. Then removed the catheter and the sheath, placed TR band with good hemostasis. Findings: 1. Left main is normal. 2. LAD is normal. Normal diagonal branches. Large vessel. 3. Left circumflex: Large vessel and normal. 4. RCA: Moderate size vessel, codominant, and normal. 5. LVEDP: Slightly elevated at 15 mmHg. Conclusion: Normal coronary arteries with elevated LVEDP. Recommendation: Medical management. /MODL Voice ID: [id number] Report ID: [id number]
== END 2024-10-21 19:10 | disposition home or self-care (01) ==
LOC: CCL 13:13
PROVIDERS: ATTEND Internal Medicine
DX: R94.39 Abnormal result of other cardiovascular function study (principal); R07.9 Chest pain, unspecified; R94.31 Abnormal electrocardiogram [ECG] [EKG]; I34.0 Nonrheumatic mitral (valve) insufficiency; I10 Essential (primary) hypertension; E78.5 Hyperlipidemia, unspecified; Z87.891 Personal history of nicotine dependence; Z79.82 Long term (current) use of aspirin; Z79.899 Other long term (current) drug therapy; Z82.49 Family history of ischemic heart disease and other diseases of the circulatory system
CPT/HCPCS: 85025; 80048; 36415; 85610; 85730; 71046; 93458; 76937; C1893; Q9966; J1644; J2003; J2250; J3010; J7040; 99152; 99153; J0461